=== PATIENT | male | born 1965 | race Caucasian/White ===

== ENCOUNTER 2018-08-28 07:35 | Day surgery (SDC) | payer MEDICARE ==
[2018-08-28] MEDS ORDERED: MIDAZOLAM HCL 2 MG/2 ML VIAL ONE (08:48)
[2018-08-28] MEDS ORDERED: LACTATED RINGERS 1,000 ML IV.SOLN IV ONE (08:48)
[2018-08-28] MEDS ORDERED: fentaNYL CITRATE/PF 100 MCG/2 ML INJ. ONE (08:48)
== END 2018-08-28 11:10 | disposition home or self-care (01) ==
LOC: OPSURG 07:35
PROVIDERS: ATTEND Physical Medicine & Rehabilitation
DX: M47.817 Spondylosis without myelopathy or radiculopathy, lumbosacral region (principal)
CPT/HCPCS: 64635; 64636; J2250; J3010; J7120